=== PATIENT | male | born 1950 | race Caucasian/White ===

== ENCOUNTER 2019-09-03 09:53 | Inpatient (IN) | payer MEDICARE, OTHER ==
--- NOTE | 2019-09-03 09:58 | ED Physician Documentation ---
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 Upon arrival patient temp was 101.0 with HR 126, BP 117/66, RR 13, SaO2 89% room air. Patient is reported to be incontinent of urine today which is new. PmHx Afib (on coumadin), hypothyroid, bipolar, insomia. Onset: hours (1) Timing: still present Severity: moderate - ROS CONST: fever EYES/ENT: none CVS/RESP: denies: chest pain, shortness of breath GI/: other (incontinent urine). denies: vomiting, nausea MS/SKIN/LYMPH: leg swelling NEURO/PSYCH: other (confusion) - PAST HX Past History: A-Fib Other History: none Surgeries/Procedures: none Allergies/Adverse Reactions: Allergies Allergy/AdvReac Type Severity Reaction Status Date / Time Penicillins Allergy Verified 09/03/19 10:05 Home Medications: Ambulatory Orders Medication Instructions Recorded Atorvastatin Calcium 40 mg PO DAILY 09/03/19 Cholecalciferol [Vitamin D-3] 1,000 unit PO DAILY 09/03/19 Digoxin [Lanoxin] 25 mcg PO DAILY 09/03/19 Divalproex Sodium 750 mg PO DAILY 09/03/19 Divalproex Sodium [Divalproex 500 mg PO DAILY 09/03/19 Sodium ER] Ferrous Sulfate [Iron] 325 mg PO DAILY 09/03/19 Folic Acid [Folvite] 1 mg PO DAILY 09/03/19 Furosemide [Lasix] 30 mg PO BID 09/03/19 Hydroxyzine HCl [Atarax] 25 mg PO DAILY 09/03/19 Levothyroxine Sodium [Euthyrox] 175 mcg PO HS 09/03/19 Potassium Chloride [Klor-Con] 20 meq PO DAILY 09/03/19 Primidone [Mysoline] 12.5 mg PO BID 09/03/19 Tamsulosin HCl 0.4 mg PO DAILY 09/03/19 Warfarin Sodium [Coumadin] 9 mg PO HS 09/03/19 - SOCIAL HX Smoking History: non-smoker Alcohol Use: none Drug Use: none - FAMILY HX Family History: Yes Progress - Progress Progress: 1200 Discussed with [facility] for admission. She accepts patient. - EKG/XRAY/CT Comments: 1007 Afib with RVR HR 136 ED Results Lab/Radiology - Lab Results Lab Results: Influenza A/B - Negative. - Radiology Radiology Impressions: Report Submission Date: Sep 03, 2019 11:50:48 AM SIDE LASTER TACK Patient Study Name: AMBER SCOTT Date: Sep 03, 2019 10:45:39 AM SIDE LASTER TACK Modality Type: DX Gender: M Description: CHEST 2VIEW : 52 Institution: [facility] Physician: POPEYE BRANTLEY Examination: PA and lateral chest. History: Evaluate lung kendall. Comparison exam: None available. Findings: Film markings have cardiac apex pointing to the right: Mismarked labeling versus dextrocardia. Cardiac silhouette is prominent. Diffuse vascular/interstitial prominence. Retrocardiac haziness. Articular degenerative changes. Impression: Diffuse vascular/interstitial prominence suggesting increased volume status. Cardiomegaly. Electronically signed on Sep 03, 2019 11:50:48 AM SIDE LASTER TACK by: Joon Rader - Orders Orders: ED Orders Category Date Time Status BLOOD CULTURE Stat Lab 09/03/19 Ordered CBC/PLATELET/DIFF Routine Lab 09/03/19 Ordered CMP Routine Lab 09/03/19 Ordered UA W/MICRO IF INDICATED Routine Lab 09/03/19 09:56 Ordered General Adult Physical Exam - PHYSICAL EXAM GENERAL APPEARANCE: no distress EENT: ENIO NECK: supple RESPIRATORY: no resp distress, chest non-tender, wheezes (scattered bilaterally) CVS: reg rate & rhythm ABDOMEN: soft, normal bowel sounds, non-tender BACK: normal inspection SKIN: warm/dry EXTREMITIES: non-tender, edema (+2 pitting edema to lower extremities to knee) NEURO: oriented X3, mood/affect nml Discharge Clincal Impression: Atrial fibrillation with RVR Pneumonia Qualifiers: Pneumonia type: due to other aerobic Gram-negative bacteria Laterality: bilater al Lung location: unspecified part of lung Qualified Code(s): J15.6 - Pneumonia due to other Gram-negative bacteria Referrals: Ronnell Mendiola DO [Primary Care Provider] - 2 Days Decision to Admit: [id number] Date of Decison to Admit: 09/03/19 Decision Time: 12:09
[2019-09-03] MEDS ORDERED: 0.9 % SODIUM CHLORIDE 1,000 ML IV ONE (10:01)
[2019-09-03] MEDS ORDERED: ACETAMINOPHEN 325 MG TABLET PO ONE (10:01)
[2019-09-03 10:11] LABS: BASOPHILS % 0.7 % (0.0-1.5); NEUTROPHILS # 7.4 # k/uL (1.4-7.7)
[2019-09-03 10:51] LABS: eGFR (Non-African) > 60
[2019-09-03 10:52] LABS: TSH 0.64 mIU/l (0.465-4.685)
[2019-09-03 10:58] LABS: APPEARANCE,URINE CLOUDY (CLEAR); COLOR,URINE AMBER (YELLOW); OCCULT BLOOD,URINE TRACE (NEGATIVE); PH URINE 8.5 (5.0 - 8.0)
[2019-09-03] MEDS ORDERED: LevoFLOXacin 750 MG/150 ML PIGGYBACK IV ONE (11:34)
--- NOTE | 2019-09-03 11:55 | Diagnostic Imaging Report ---
PATIENT MR#: [id number] PATIENT PATIENT NAME: AMBER SCOTT DATE OF : 1950 REFERRING PHYSICIAN: Luda Cordova EXAM DATE: 09/03/2019 ACCESSION NUMBER: [id number] EXAM DESCRIPTION: CHEST 2VIEW Examination: PA and lateral chest. History: Evaluate lung kendall. Comparison exam: None available. Findings: Film markings have cardiac apex pointing to the right: Mismarked labeling versus dextrocard ia. Cardiac silhouette is prominent. Diffuse vascular/interstitial prominence. Retrocardiac haziness. Articular d egenerative changes. Impression: Diffuse vascular/interstitial prominence suggesting increased volume status. Cardiomegaly . Read by: Dr. Joon Rader Transcribed by: Transcribed Date: Electronically signed by: Dr. Joon Rader Date signed: 09/03/2019 11:55:14 AM
[2019-09-03 13:52] VITALS: BMI 33.5
[2019-09-03] MEDS ORDERED: IPRATROPIUM/ALBUTEROL SULFATE 3 ML AMPUL.NEB NEB PRN (15:13)
[2019-09-03] MEDS ORDERED: PALIPERIDONE PALMITATE 156 MG IM SCH (15:30)
[2019-09-03] MEDS ORDERED: 0.9 % SODIUM CHLORIDE 250 ML IV ONE (15:33)
[2019-09-03] MEDS ORDERED: AZITHROMYCIN 500 MG VIAL IV ONE (15:33)
--- NOTE | 2019-09-03 15:38 | History and Physical Report ---
History of Present Illnes - History of Present Illness Reason for Visit: Afib and Pneumonia History of Present Illness: 69 year old male presented to the ER via [facility] from [facility] where they stated he was confused and fever of 103. His temp in the ER was 101.0 with HR 126, BP 117/66, RR 13, SaO2 89% room air. He was incontinent of urine which is new for him. He has a history of A-fib and is currently on coumadin and digoxin. He was admitted to hospital for A-fib with RVR and Pneumonia. He will receive IV antibiotics, IV fluids, scheduled nebulizer treatment. 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 Endocrine: Hypothyroidism - Past Surgical History Past Surgical History: Other (Orthopedic) - Past Social History Smoke: No Alcohol: None Drugs: None Lives: Residential Domestic Violence: Negative - Health Maintenance Health Maintenance: Cholesterol, Influenza Vaccine, Pneumococcal Vaccine Influenza Vaccine: Current for this Influenza Season Pneumonia Vaccine: Yes Resuscitation Status: Resusciation Status Resuscitation Status Full Code Review of Systems - Review of Systems Constitutional: Fever, Chills, Weakness Eyes: negative: conjunctivae inflammation, eyelid inflammation ENT: Nose Discharge, Nose Congestion. negative: Ear Pain, Ear Discharge Respiratory: Cough, Shortness of Breath, SOB with Excertion Cardiovascular: Light Headedness. negative: Chest Pain Gastrointestinal: negative: Nausea, Vomiting Genitourinary: Incontinence Musculoskeletal: negative: Back Pain Skin: negative: Rash Neurological: Weakness, Incoordination - Medications/Allergies Allergies/Adverse Reactions: Allergies Allergy/AdvReac Type Severity Reaction Status Date / Time Penicillins Allergy Verified 09/03/19 10:05 Home Medications: Home Medications Atorvastatin Calcium 40 mg PO DAILY 09/03/19 Cholecalciferol [Vitamin D-3] 1,000 unit PO DAILY 09/03/19 Digoxin [Lanoxin] 25 mcg PO DAILY 09/03/19 Divalproex Sodium 750 mg PO DAILY 09/03/19 Divalproex Sodium [Divalproex Sodium ER] 500 mg PO DAILY 09/03/19 Eszopiclone [Lunesta] 3 mg PO HS 09/03/19 Ferrous Sulfate [Iron] 325 mg PO DAILY 09/03/19 Folic Acid [Folvite] 1 mg PO DAILY 09/03/19 Furosemide [Lasix] 30 mg PO BID 09/03/19 Hydroxyzine HCl [Atarax] 25 mg PO DAILY 09/03/19 Lactulose [Constulose] 20 gm PO BID 09/03/19 Levothyroxine Sodium [Euthyrox] 175 mcg PO HS 09/03/19 Melatonin 3 mg PO HS 09/03/19 Oxybutynin Chloride [Ditropan] 5 mg PO HS 09/03/19 Paliperidone Palmitate [Invega Sustenna] 156 mg IM Q28D 09/03/19 Potassium Chloride [Klor-Con] 20 meq PO DAILY 09/03/19 Primidone [Mysoline] 12.5 mg PO BID 09/03/19 Tamsulosin HCl 0.4 mg PO DAILY 09/03/19 Trazodone HCl 200 mg PO HS 09/03/19 Warfarin Sodium [Coumadin] 9 mg PO HS 09/03/19 Current Inpatient Medications: Current Inpatient Medications Albuterol/Ipratropium (Duoneb) 3 ml NEB Q4 ADALID Stop: 10/03/19 16:59 Cholecalciferol (Vitamin D-3) 1,000 unit PO DAILY ADALID Stop: 10/04/19 08:59 Folic Acid (Folvite) 1 mg PO DAILY ADALID Stop: 10/04/19 08:59 Furosemide (Lasix) 30 mg PO BID ADALID Stop: 10/03/19 20:59 Azithromycin 500 mg/ Sodium (Chloride) 250 mls @ 250 mls/hr IV Q24H ADALID Stop: 09/07/19 16:13 Levofloxacin (Levaquin) 750 mg in 150 mls @ 100 mls/hr IV Q24H ADALID Stop: 10/04/19 11:29 Sodium Chloride (Normal Saline) 1,000 mls @ 75 mls/hr IV Q10H ADALID Stop: 10/03/19 15:44 Melatonin (Melatonin) 3 mg PO HS ADALID Stop: 10/03/19 20:59 Miscellaneous (Atorvastatin Calcium [Atorvastatin Calcium]) 40 mg PO DAILY [facility]ALID Stop: 10/04/19 08:59 Miscellaneous (Digoxin [Lanoxin]) 25 mcg PO DAILY [facility]ALID Stop: 10/04/19 08:59 Miscellaneous (Divalproex Sodium [Divalproex Sodium]) 750 mg PO DAILY [facility] Stop: 10/04/19 08:59 Miscellaneous (Eszopiclone [Lunesta]) 3 mg PO HS [facility] Stop: 10/03/19 20:59 Miscellaneous (Ferrous Sulfate [Iron]) 325 mg PO DAILY [facility] Stop: 10/04/19 08:59 Miscellaneous (Potassium Chloride [Klor-Con]) 20 meq PO DAILY [facility] Stop: 10/04/19 08:59 Miscellaneous (Trazodone Hcl [Trazodone Hcl]) 200 mg PO HS [facility]AL[facility] Stop: 10/03/19 20:59 Miscellaneous (Warfarin Sodium [Coumadin]) 9 mg PO HS [facility] Stop: 10/03/19 20:59 Oxybutynin Chloride (Ditropan) 5 mg PO HS [facility] Stop: 10/03/19 20:59 Primidone (Mysoline) 12.5 mg PO BID [facility] Stop: 10/03/19 20:59 Tamsulosin HCl (Flomax) 0.4 mg PO DAILY [facility] Stop: 10/04/19 08:59 Exam - Exam Vital Signs: Vital Signs (72 hours) 09/03/19 09/03/19 09/03/19 10:01 12:22 13:12 Temperature 101.0 F H 98.9 F 99.6 F Pulse Rate [ 112 H 90 81 Pulse ox] Respiratory 15 19 20 Rate Blood Pressure 111/71 120/65 126/67 [Left Arm] O2 Sat by Pulse 86 L 95 95 Oximetry 09/03/19 13:48 Temperature 99.6 F Pulse Rate [ 81 Pulse ox] Respiratory 20 Rate Blood Pressure 126/67 [Left Arm] O2 Sat by Pulse 95 Oximetry General: Alert, Oriented to Person, Moderate distress HEENT: Atraumatic, PERRLA Neck: Normal Range of Motion Carotids: No bruit Lungs: Decreased Air Movement (Decreased breath sounds in the bases) Cardiovascular: Irregularly Irregular Abdomen: Normal bowel sounds, Soft Integumentary: Dry, Pale Extremities: No edema, Normal pulses, No tenderness/swelling Neurological: Strength Equal Bilat, Generalized Weakness Psych/Mental Status: Appropriate Affect - Laboratory Results Laboratory Results: Laboratory Results 09/03/19 09/03/19 09/03/19 10:09 10:09 10:10 WBC 8.50 RBC 4.24 Hgb 13.0 Hct 38.2 MCV 90.0 MCH 30.7 MCHC 34.1 RDW 11.4 Plt Count 179 Neut % (Auto) 87.2 H Lymph % (Auto) 3.3 L [place] % (Auto) 7.6 Eos % (Auto) 1.2 Baso % (Auto) 0.7 Neut # (Auto) 7.4 Lymph # (Auto) 0.3 L [place] # (Auto) 0.6 Eos # (Auto) 0.1 Baso # (Auto) 0.1 PT INR Sodium 142 Potassium 3.9 Chloride 102 Carbon Dioxide 26 Anion Gap 17.9 BUN 16 Creatinine 0.83 Estimated Creat Clear 136 Est GFR ( Amer) > 60 Est GFR (Non-Af Amer) > 60 Glucose 106 Calcium 8.8 Total Bilirubin 0.7 AST 53 H ALT 12 Alkaline Phosphatase 64 Troponin I 0.012 NT-Pro-B Natriuret Pep 2247.6 H Total Protein 7.4 Albumin 4.0 TSH 0.640 Urine Color Urine Appearance Urine pH Ur Specific [place] Urine Protein Urine Ketones Urine Occult Blood Urine Nitrite Urine Bilirubin Urine Urobilinogen Ur Leukocyte Esterase Urine Glucose Influenza A (Rapid) Influenza B (Rapid) 09/03/19 09/03/19 09/03/19 10:10 10:23 11:27 WBC RBC Hgb Hct MCV MCH MCHC RDW Plt Count Neut % (Auto) Lymph % (Auto) [place] % (Auto) Eos % (Auto) Baso % (Auto) Neut # (Auto) Lymph # (Auto) [place] # (Auto) Eos # (Auto) Baso # (Auto) PT 27.4 H INR 2.66 H Sodium Potassium Chloride Carbon Dioxide Anion Gap BUN Creatinine Estimated Creat Clear Est GFR ( Amer) Est GFR (Non-Af Amer) Glucose Calcium Total Bilirubin AST ALT Alkaline Phosphatase Troponin I NT-Pro-B Natriuret Pep Total Protein Albumin TSH Urine Color Flora Urine Appearance Cloudy Urine pH 8.5 Ur Specific [place] 1.015 Urine Protein 2+ H Urine Ketones Trace H Urine Occult Blood Trace Urine Nitrite Negative Urine Bilirubin 1+ H Urine Urobilinogen 2.0 H Ur Leukocyte Esterase Negative Urine Glucose Negative Influenza A (Rapid) Negative Influenza B (Rapid) Negative Assessment/Plan - Assessment/Plan (1) Atrial fibrillation with RVR Status: Acute Assessment: Afib on the monitor; irregular heart beat; rate >120 Plan: Receiving IVF, continue dig., continue coumadin, continue telemetry (2) Pneumonia Status: Acute Qualifiers: Pneumonia type: due to other aerobic Gram-negative bacteria Laterality: bilateral Lung location: unspecified part of lung Qualified Code(s): J15.6 - Pneumonia due to other Gram-negative bacteria Assessment: Diminished breath sounds bibasilar; Oxygen sat 92% with supplemental oxygen; Plan: will continue with breathing treatments, IV antibiotics, IVF, and supplemental oxygen VTE Assessment - RISK FACTOR SCORE VTE RISK FACTOR SCORES: AGE OVER 60 YEARS, ACUTE INFECTION OTHER THEN SEPSIS, ANTICIPATED BED CONFINEMENT OR IMMOBILIZATION > 24 HOURS - RISK VTE HIGH RISK: SCORE OF 3-4 (RISK PROXIMAL DVT 4-8%) PROPHYLAXIS NEEDED (patient currently on coumadin)
[2019-09-03] MEDS: 0.9 % SODIUM CHLORIDE 1,000 ML IV SCH (15:47)
[2019-09-03] MEDS: AZITHROMYCIN 500 MG in 0.9 % SODIUM CHLORIDE 250 ML IV SCH (15:49)
[2019-09-03] MEDS: FUROSEMIDE 20 MG TABLET PO SCH (17:33)
[2019-09-03] MEDS: WARFARIN SODIUM 5 MG TABLET PO SCH (17:34)
[2019-09-03] MEDS: IPRATROPIUM/ALBUTEROL SULFATE 3 ML AMPUL.NEB NEB SCH ×2 (17:36→21:16)
[2019-09-03] MEDS: traZODone HCL 50 MG TABLET PO SCH (21:08)
[2019-09-03] MEDS: MELATONIN 3 MG TABLET PO SCH (21:09)
[2019-09-03] MEDS ORDERED: ATORVASTATIN CALCIUM 20 MG TABLET PO ONE (21:09)
[2019-09-03] MEDS: SODIUM CHLORIDE 0.9 % (FLUSH) 10 ML DISP.SYRIN IV SCH (21:09)
[2019-09-03] MEDS: OXYBUTYNIN CHLORIDE 5 MG TABLET PO SCH (21:09)
[2019-09-03] MEDS: PRIMIDONE 50 MG TABLET PO SCH (21:13)
[2019-09-03] MEDS: ZOLPIDEM TARTRATE 5 MG TABLET PO SCH (21:14)
[2019-09-03] MEDS: WARFARIN SODIUM 1 MG TABLET PO SCH (21:38)
[2019-09-04] MEDS: IPRATROPIUM/ALBUTEROL SULFATE 3 ML AMPUL.NEB NEB SCH ×6 (01:40→21:32)
[2019-09-04] MEDS: 0.9 % SODIUM CHLORIDE 1,000 ML IV SCH ×3 (05:53→13:46)
[2019-09-04 08:42] LABS: BASOPHILS % 0.5 % (0.0-1.5)
[2019-09-04 08:43] LABS: NEUTROPHILS # 4.3 # k/uL (1.4-7.7)
[2019-09-04 08:47] LABS: eGFR (Non-African) > 60
[2019-09-04] MEDS: VALPROIC ACID 250 MG/5 ML PO SCH (09:00)
[2019-09-04] MEDS ORDERED: DIGOXIN 125 MCG TABLET PO SCH (09:00)
[2019-09-04] MEDS: POTASSIUM CHLORIDE 20 MEQ TABLET.ER PO SCH (09:04)
[2019-09-04] MEDS: FERROUS SULFATE 325 MG TABLET PO SCH (09:04)
[2019-09-04] MEDS: PRIMIDONE 50 MG TABLET PO SCH ×2 (09:05→21:30)
[2019-09-04] MEDS: TAMSULOSIN HCL 0.4 MG CAP.ER.24H PO SCH (09:05)
[2019-09-04] MEDS: CHOLECALCIFEROL (VIT-D3) 1,000 UNIT TABLET PO SCH (09:06)
[2019-09-04] MEDS: FOLIC ACID 1 MG TABLET PO SCH (09:06)
[2019-09-04] MEDS: FUROSEMIDE 20 MG TABLET PO SCH ×2 (09:06→17:30)
[2019-09-04] MEDS: SODIUM CHLORIDE 0.9 % (FLUSH) 10 ML DISP.SYRIN IV SCH ×2 (09:13→22:32)
[2019-09-04] MEDS ORDERED: DIGOXIN 125 MCG TABLET PO ONE ×2 (11:14→19:26)
[2019-09-04] MEDS ORDERED: ACETAMINOPHEN 325 MG TABLET ONE ×3 (11:15→17:23)
[2019-09-04] MEDS: DIGOXIN 125 MCG TABLET PO SCH (11:23)
[2019-09-04] MEDS: LevoFLOXacin 750 MG/150 ML PIGGYBACK IV SCH (11:23)
[2019-09-04] MEDS: ACETAMINOPHEN 325 MG TABLET PO PRN ×2 (11:24→17:30)
--- NOTE | 2019-09-04 14:11 | Inpatient Progress Note ---
Subjective - Required Recertification Statement I anticipate X number of days because-include discharge plan: Unknown - Review of Systems Events since last encounter: 69 year old male sitting up in the bedside chair; he is awake, alert and oriented x 4; he states that he is feeling much better; he has been eating well; has been ambulating to the bathroom and is continent; he has been walking in the hallway with therapies and nursing. Patient would like to go home; explained t hat we would like to get his heart rate down and get him weaned off the oxygen. He agrees with plan of care. General: Denies: Chills HEENT: Denies: Head Aches, Dysphasia Pulmonary: Cough. Denies: Dyspnea Cardiovascular: Denies: Chest Pain, Paroxysmal Noc. Dyspnea, Edema Gastrointestinal: Denies: Nausea, Vomiting Genitourinary: Denies: Dysuria, Incontinence Musculoskeletal: Denies: Back Pain Neurological: Weakness Objective - Exam Vitals and I&O: Vital Signs Temp 98.8 F 09/04/19 13:27 Pulse 102 H 09/04/19 13:27 Resp 20 09/04/19 13:27 BP 142/76 09/04/19 13:27 Pulse Ox 94 09/04/19 13:27 Intake & Output 09/03/19 09/04/19 09/04/19 23:59 11:59 23:59 Intake Total 523 690 435 Output Total 0 900 Balance 523 690 -465 Weight 109.225 kg Intake: IV 403 450 75 Right Forearm 403 450 75 Oral 120 240 360 Output: Urine 0 900 Other: Voiding Method Urinal Urinal # Voids 3 4 # Bowel Movements 1 0 General: Alert, Oriented to Person, Oriented to Place, Oriented to Time, Coop erative, No acute distress HEENT: Atraumatic, PERRLA, Mouth Mucous membr. moist/[place], Nose Mucous membr. moist/[place] Neck: No JVD, +2 carotid pulse wo bruit Lungs: Normal air movement, Speaks full Sentences, Rhonchi Cardiovascular: Irregularly Irregular Abdomen: Normal bowel sounds, Soft Extremities: No cyanosis, No edema, Normal pulses, No tenderness/swelling Skin: [place], Warm, Dry Neurological: Normal gait, Normal speech, Strength Equal Bilat, Sensation intact, Cranial nerves 3-12 NL, Generalized Weakness Psych/Mental Status: Mental status NL, Mood NL, Appropriate Affect, Intact Judgment - Results Results: Laboratory Results WBC 6.30 K/ul (4.00-12.00) 09/04/19 06:00 RBC 3.55 M/ul (3.90-5.20) L 09/04/19 06:00 Hgb 10.9 g/dL (12.0-18.0) L 09/04/19 06:00 Hct 31.6 % (37.0-53.0) L 09/04/19 06:00 MCV 89.0 fl (80.0-100.0) 09/04/19 06:00 MCH 30.7 pg (28.0-34.0) 09/04/19 06:00 MCHC 34.4 g/dL (30.0-36.0) 09/04/19 06:00 RDW 11.6 % (11.3-14.3) 09/04/19 06:00 Plt Count 166 K/mm3 (130-400) 09/04/19 06:00 Neut % (Auto) 68.7 % (39.0-79.0) 09/04/19 06:00 Lymph % (Auto) 19.8 % (16.0-50.0) 09/04/19 06:00 [place] % (Auto) 10.2 % (0.0-11.0) 09/04/19 06:00 Eos % (Auto) 0.8 % (0.0-6.8) 09/04/19 06:00 Baso % (Auto) 0.5 % (0.0-1.5) 09/04/19 06:00 Neut # (Auto) 4.3 # k/uL (1.4-7.7) 09/04/19 06:00 Lymph # (Auto) 1.3 # k/uL (0.6-4.0) 09/04/19 06:00 [place] # (Auto) 0.6 # k/uL (0.0-0.9) 09/04/19 06:00 Eos # (Auto) 0.1 # k/uL (0.0-0.6) 09/04/19 06:00 Baso # (Auto) 0.0 # k/uL (0.0-0.5) 09/04/19 06:00 PT 27.4 Seconds (8.8-11.9) H 09/03/19 10:10 INR 2.66 (0.80-1.10) H 09/03/19 10:10 Sodium 138 mmol/L (137-145) 09/04/19 06:00 Potassium 3.6 mmol/L (3.5-5.1) 09/04/19 06:00 Chloride 101 mmol/L (98-107) 09/04/19 06:00 Carbon Dioxide 29 mmol/L (22-30) 09/04/19 06:00 Anion Gap 11.6 09/04/19 06:00 BUN 14 mg/dL (9-20) 09/04/19 06:00 Creatinine 0.72 mg/dL (0.66-1.25) 09/04/19 06:00 Estimated Creat Clear 151 09/04/19 06:00 Est GFR ( Amer) > 60 (60-) 09/04/19 06:00 Est GFR (Non-Af Amer) > 60 (60-) 09/04/19 06:00 Glucose 89 mg/dL (74-106) 09/04/19 06:00 Calcium 8.5 mg/dL (8.4-10.2) 09/04/19 06:00 Total Bilirubin 0.5 mg/dL (0.2-1.3) 09/04/19 06:00 AST 33 U/L (15-46) 09/04/19 06:00 ALT 10 U/L (4-50) 09/04/19 06:00 Alkaline Phosphatase 48 U/L (38-126) 09/04/19 06:00 Troponin I 0.012 ng/mL (0.012-0.034) 09/03/19 10:09 NT-Pro-B Natriuret Pep 1633.2 pg/mL (15.0-125.5) H 09/04/19 06:00 Total Protein 6.6 g/dL (6.3-8.2) 09/04/19 06:00 Albumin 3.5 g/dL (3.5-5.0) 09/04/19 06:00 TSH 0.640 mIU/l (0.465-4.685) 09/03/19 10:09 Urine Color Flora (YELLOW) 09/03/19 10:23 Urine Appearance Cloudy (CLEAR) 09/03/19 10:23 Urine pH 8.5 (5.0 - 8.0) 09/03/19 10:23 Ur Specific [place] 1.015 (1.010-1.030) 09/03/19 10:23 Urine Protein 2+ mg/dL (NEGATIVE) H 09/03/19 10:23 Urine Ketones Trace mg/dL (NEGATIVE) H 09/03/19 10:23 Urine Occult Blood Trace (NEGATIVE) 09/03/19 10:23 Urine Nitrite Negative (NEGATIVE) 09/03/19 10:23 Urine Bilirubin 1+ (NEGATIVE) H 09/03/19 10:23 Urine Urobilinogen 2.0 Eu (0.2-1.0) H 09/03/19 10:23 Ur Leukocyte Esterase Negative (NEGATIVE) 09/03/19 10:23 Urine Glucose Negative mg/dL (NEGATIVE) 09/03/19 10:23 Influenza A (Rapid) Negative (NEGATIVE) 09/03/19 11:27 Influenza B (Rapid) Negative (NEGATIVE) 09/03/19 11:27 Assessment/Plan - Assessment/Plan (1) Atrial fibrillation with RVR Status: Acute Assessment: Patient still has a rate > 120; denies any chest pain or shortness of breath Plan: will increase digoxin; level came back low- non therapeutic (2) Pneumonia Status: Acute Qualifiers: Pneumonia type: due to other aerobic Gram-negative bacteria Laterality: bilateral Lung location: unspecified part of lung Qualified Code(s): J15.6 - Pneumonia due to other Gram-negative bacteria Assessment: Patient has scattered rhonchi throughout; still requiring supplemental oxygen; Plan: Continue with HFN tx's, IV antibiotics; will start to titrate patient off oxygen; If patient does well- we will send him back to [facility] tomorrow (patient is really wanting to go home)
[2019-09-04] MEDS: AZITHROMYCIN 500 MG in 0.9 % SODIUM CHLORIDE 250 ML IV SCH (15:09)
[2019-09-04] MEDS: WARFARIN SODIUM 1 MG TABLET PO SCH (17:28)
[2019-09-04] MEDS: WARFARIN SODIUM 5 MG TABLET PO SCH (17:29)
[2019-09-04] MEDS: DIGOXIN 125 MCG TABLET PO ONE (19:37)
[2019-09-04] MEDS ORDERED: ATORVASTATIN CALCIUM 20 MG TABLET PO SCH (21:00)
[2019-09-04] MEDS: OXYBUTYNIN CHLORIDE 5 MG TABLET PO SCH (21:29)
[2019-09-04] MEDS: MELATONIN 3 MG TABLET PO SCH (21:29)
[2019-09-04] MEDS: traZODone HCL 50 MG TABLET PO SCH (21:29)
[2019-09-04] MEDS: ZOLPIDEM TARTRATE 5 MG TABLET PO SCH (21:29)
[2019-09-05] MEDS: IPRATROPIUM/ALBUTEROL SULFATE 3 ML AMPUL.NEB NEB SCH ×4 (02:12→13:13)
[2019-09-05] MEDS: 0.9 % SODIUM CHLORIDE 1,000 ML IV SCH ×2 (02:15→09:11)
[2019-09-05] MEDS ORDERED: ACETAMINOPHEN 325 MG TABLET ONE ×2 (02:30→15:01)
[2019-09-05] MEDS: ACETAMINOPHEN 325 MG TABLET PO PRN ×2 (03:02→15:07)
[2019-09-05] MEDS ORDERED: DIGOXIN 125 MCG TABLET PO ONE ×3 (07:00→13:06)
--- NOTE | 2019-09-05 07:10 | Diagnostic Imaging Report ---
PATIENT MR#: [id number] PATIENT PATIENT NAME: AMBER SCOTT DATE OF : 1950 REFERRING PHYSICIAN: Altagracia Olsen EXAM DATE: 09/05/2019 ACCESSION NUMBER: [id number] EXAM DESCRIPTION: CHEST 2VIEW Chest, PA and lateral History: Pneumonia Findings: Small bilateral pleural effusions are present. There is no pneumothorax. Heart size and pul monary vascularity are normal. Impression: Bilateral pleural effusions. Read by: Dr. Kavon Rebolledo Transcribed by: Transcribed Date: Electronically signed by: Dr. Kavon Rebolledo Date signed: 09/05/2019 7:09:32 AM
[2019-09-05 07:34] LABS: eGFR (Non-African) > 60
[2019-09-05] MEDS: DIGOXIN 125 MCG TABLET PO ONE (07:45)
[2019-09-05] MEDS: CHOLECALCIFEROL (VIT-D3) 1,000 UNIT TABLET PO SCH (08:39)
[2019-09-05] MEDS: FOLIC ACID 1 MG TABLET PO SCH (08:39)
[2019-09-05] MEDS: TAMSULOSIN HCL 0.4 MG CAP.ER.24H PO SCH (08:39)
[2019-09-05] MEDS: FERROUS SULFATE 325 MG TABLET PO SCH (08:40)
[2019-09-05] MEDS: FUROSEMIDE 20 MG TABLET PO SCH (08:40)
[2019-09-05] MEDS: PRIMIDONE 50 MG TABLET PO SCH (08:40)
[2019-09-05] MEDS: POTASSIUM CHLORIDE 20 MEQ TABLET.ER PO SCH (08:40)
[2019-09-05] MEDS: VALPROIC ACID 250 MG/5 ML PO SCH (08:44)
[2019-09-05] MEDS: SODIUM CHLORIDE 0.9 % (FLUSH) 10 ML DISP.SYRIN IV SCH (10:52)
[2019-09-05] MEDS ORDERED: LevoFLOXacin 500 MG TABLET ONE (13:05)
[2019-09-05] MEDS: DIGOXIN 125 MCG TABLET PO SCH (13:12)
[2019-09-05] MEDS: LevoFLOXacin 750 MG/150 ML PIGGYBACK IV SCH (13:24)
--- NOTE | 2019-09-05 14:28 | Discharge Summary ---
Discharge Summary - Discharge [facility] Admission Date: 09/03/19 Discharge Date: 09/06/19 Discharge To: Detention History of Present Illness: 69 year old male presented [facility] where they stated he was confused and fever of 103. His temp in the ER was 101.0 with HR 126, BP 117/66, RR 13, SaO2 89% room air. He was incontinent of urine which is new for him. He has a history of A-fib and is currently on coumadin and digoxin. He was admitted to hospital for A-fib with RVR and Pneumonia. He will receive IV antibiotics, IV fluids, scheduled nebulizer treatment. Condition at Discharge: Stable Home Medications: Ambulatory Orders Medication Instructions Recorded Atorvastatin Calcium 40 mg PO DAILY 09/03/19 Cholecalciferol [Vitamin D-3] 1,000 unit PO DAILY 09/03/19 Digoxin [Lanoxin] 25 mcg PO DAILY 09/03/19 Divalproex Sodium 750 mg PO DAILY 09/03/19 Divalproex Sodium [Divalproex 500 mg PO DAILY 09/03/19 Sodium ER] Eszopiclone [Lunesta] 3 mg PO HS 09/03/19 Ferrous Sulfate [Iron] 325 mg PO DAILY 09/03/19 Folic Acid [Folvite] 1 mg PO DAILY 09/03/19 Furosemide [Lasix] 30 mg PO BID 09/03/19 Hydroxyzine HCl [Atarax] 25 mg PO DAILY 09/03/19 Lactulose [Constulose] 20 gm PO BID 09/03/19 Levothyroxine Sodium [Euthyrox] 175 mcg PO HS 09/03/19 Melatonin 3 mg PO HS 09/03/19 Oxybutynin Chloride [Ditropan] 5 mg PO HS 09/03/19 Paliperidone Palmitate [Invega 156 mg IM Q28D 09/03/19 Sustenna] Potassium Chloride [Klor-Con] 20 meq PO DAILY 09/03/19 Primidone [Mysoline] 12.5 mg PO BID 09/03/19 Tamsulosin HCl 0.4 mg PO DAILY 09/03/19 Trazodone HCl 200 mg PO HS 09/03/19 Warfarin Sodium [Coumadin] 9 mg PO HS 09/03/19 Consultations this Visit: None Procedures this Visit: None Allergies/Adverse Reactions: Allergies Allergy/AdvReac Type Severity Reaction Status Date / Time Penicillins Allergy Verified 09/03/19 10:05 Discharge Summary: 69 year old male admitted for A-fib with RVR and Pneumonia; he is feeling much better; good appetite and good oral intake; ambulatory independently, continent, LCTA and off oxygen, heart rate down to 90-100s with increase in digoxin to 250mcg daily. [facility] be [facility] to [facility] on Lev[facility] for 10 days; they will continue with nebulizers as needed and follow up with PCP next week and reevaluate A-fib and digoxin. Hospital Course: IV fluids, antibiotics, neb txs, supplemental oxygen, titration of antiarrhythmic - Final Diagnosis (1) Pneumonia Problems: stable; will continue PO levaquin Right or Left: Right (2) Atrial fibrillation with RVR Problems: stable with increase in digoxin Right or Left: Right
[2019-09-05 14:59] VITALS: BP 138/73
[2019-09-05] MEDS: AZITHROMYCIN 500 MG in 0.9 % SODIUM CHLORIDE 250 ML IV SCH (17:56)
== END 2019-09-05 16:00 | DRG 179 ==
LOC: ED 09:53 → SOUTH 12:18
PROVIDERS: ADMIT Nurse Practitioner Family; ATTEND Nurse Practitioner Family
DX: J15.6 Pneumonia due to other Gram-negative bacteria (principal); I48.91 Unspecified atrial fibrillation; E03.9 Hypothyroidism, unspecified; E78.5 Hyperlipidemia, unspecified; F31.9 Bipolar disorder, unspecified; G47.00 Insomnia, unspecified; N40.0 Benign prostatic hyperplasia without lower urinary tract symptoms; Z88.0 Allergy status to penicillin; Z79.899 Other long term (current) drug therapy; Z79.01 Long term (current) use of anticoagulants; Z79.890 Hormone replacement therapy
CPT/HCPCS: 36415; 80048; 80053; 80162; 81002; 83880; 84443; 84484; 85025; 85610; 87040; 87400; 93005; 99221; 99231; 99238; J0456; J7050; A9270; J7030; S1016